=== PATIENT | male | born 1970 | race Caucasian/White ===

== ENCOUNTER 2017-05-24 11:40 | Emergency (ER) | payer SELFPAY ==
[~2017-05-24] VITALS: Ht 175.3 cm; Wt 113.0 kg
[2017-05-24 11:43] VITALS: BP 130/91; PULSE 94; RESP 16; TEMP 98.5; O2SAT 94
== END 2017-05-24 14:10 | disposition left against medical advice (07) ==
LOC: PHED 11:40 → PHEFT 14:10
DX: R05 Cough (principal); Z53.21 Procedure and treatment not carried out due to patient leaving prior to being seen by health care provider
CPT/HCPCS: 99281